=== PATIENT | male | born 2000 | race Caucasian/White ===

== ENCOUNTER 2019-04-18 22:16 | Emergency (ER) | payer OTHER ==
[~2019-04-18] VITALS: Ht 180.3 cm; Wt 68.0 kg
[2019-04-18] MEDS ORDERED: ondansetron/PF 4mg/2ml inj IV ONE (22:40)
[2019-04-18] MEDS ORDERED: normal saline 1000ML IV soln IV ONE (22:40)
[2019-04-18 22:57] LABS: BASOPHILS % (AUTO) 0.2 % (0-1); EOSINOPHILS # (AUTO) 0.1 X10'3 (0-0.9); HEMATOCRIT 45.6 % (42.0-52.0); HEMOGLOBIN 15.5 g/dl (14.0-17.9); LYMPHOCYTES # (AUTO) 0.4 X10'3 (1.1-4.8); LYMPHOCYTES % (AUTO) 3.3 % (21-51); MEAN CORPUSCULAR HEMOGLOBIN 31.5 PG (27.0-31.0); MEAN CORPUSCULAR HGB CONC 33.9 g/dL (33.0-36.5); MEAN CORPUSCULAR VOLUME 93.1 FL (78-98); MEAN PLATELET VOLUME 8.7 FL (7.4-10.4); MONOCYTES % (AUTO) 7.5 % (2-12); NEUTROPHILS # (AUTO) 11.3 X10'3 (1.8-7.7); PLATELET COUNT 212 X10'3 (140-440); RED CELL DISTRIBUTION WIDTH 12.3 % (11.5-14.5); WHITE BLOOD COUNT 12.9 X10'3 (4.5-11.0)
--- NOTE | 2019-04-18 22:58 | NUR ---
ct to take pt to ct scan
[2019-04-18] MEDS ORDERED: iohexol 300mg/ml 100ml inj. ONE (23:04)
[2019-04-18 23:12] LABS: ALANINE AMINOTRANSFERASE 44 U/L (12-78); ALBUMIN 4.4 G/DL (3.4-5.0); ALBUMIN/GLOBULIN RATIO 1.4 (1.1-1.5); ALKALINE PHOSPHATASE 94 IU/L (20-180); ANION GAP 13 (8-16); ASPARTATE AMINO TRANSFERASE 26 U/L (10-37); BILIRUBIN,TOTAL 1.5 MG/DL (0.1-1.0); BLOOD UREA NITROGEN 25 MG/DL (7-18); BUN/CREATININE RATIO 24.8 (5.4-32.0); CALCIUM 9.1 MG/DL (8.5-10.1); CHLORIDE 104 MMOL/L (99-107); CREATININE 1.01 MG/DL (0.60-1.10); GLUCOSE 112 MG/DL (70-104); LIPASE 1320 U/L (73-393); POTASSIUM 3.5 MMOL/L (3.5-5.1); SODIUM 141 MMOL/L (135-145); TOTAL CARBON DIOXIDE 24.3 MMOL/L (24-32); TOTAL PROTEIN 7.5 G/DL (6.4-8.2); eGFR > 90 ML/MIN
[2019-04-18] MEDS ORDERED: famotidine/PF 10 mg/ml inj IV ONE (23:50)
[2019-04-18] MEDS ORDERED: ketorolac trometh. 30mg/ml inj. IV ONE (23:50)
--- NOTE | 2019-04-19 00:36 | NUR ---
PT REQUESTED FOR WATER ,ASKED STEPHEN CRONIN ABOUT THE DIET PER PA GIVE CLEAR LIQUID.PT TOLERATED THE ICEWATER.NO CO NAUSEA OR VOMITING
[2019-04-19] MEDS ORDERED: ONDA4TAB6 PO (00:54)
[2019-04-19] MEDS ORDERED: HYDR-4383 PO (00:54)
[2019-04-19 02:09] VITALS: BP 102/43
== END 2019-04-19 01:15 | disposition home or self-care (01) ==
LOC: ER 22:16
DX: K85.90 Acute pancreatitis without necrosis or infection, unspecified (principal); R74.8 Abnormal levels of other serum enzymes; R11.2 Nausea with vomiting, unspecified; R19.7 Diarrhea, unspecified; Z79.899 Other long term (current) drug therapy
CPT/HCPCS: 36415; 74177; 80053; 83605; 83690; 84145; 85025; 87040; 96361; 96374; 96375; 99284; J1885; J2405; J3490; J7030; J7040; Q9967; 96376